=== PATIENT | female | born 1985 | race Caucasian/White ===

== ENCOUNTER 2022-03-02 08:26 | Emergency (ER) | payer SELFPAY ==
[~2022-03-02] VITALS: Ht 170.2 cm; Wt 90.9 kg
[2022-03-02 08:29] VITALS: BP 123/85
[2022-03-02] MEDS ORDERED: CLEOCIN HCL300 MG PO ×2 (09:44→10:04)
[2022-03-02 09:59] VITALS: PULSE 86
[2022-03-02] MEDS ORDERED: NORCO 325 MG-51 TAB PO (10:03)
== END 2022-03-02 10:09 | disposition home or self-care (01) ==
LOC: COL.ER 08:26
DX: N61.1 Abscess of the breast and nipple (principal); Z88.2 Allergy status to sulfonamides; Z28.310 Unvaccinated for COVID-19